=== PATIENT | female | born 1950 | race Caucasian/White ===

== ENCOUNTER → 2019-05-17 08:02 | Outpatient (CLI) | payer MEDICARE, BC ==
[2012-06-10 12:59] VITALS: BMI 40.7
--- NOTE | 2019-05-18 13:05 | EC ---
PATIENT:KRISTOPHER JIMENES DATE OF SERVICE: 05/17/19 SEX: F MEDICAL RECORD: [id number] DATE OF : [birth year] LOCATION:D[facility] AGE OF PATIENT: 69 ADMISSION DATE: 05/17/19 REFERRING PHYSICIAN: INTERPRETING PHYSICIAN: HAILEY ABRAHAM MD ECHOCARDIOGRAM REPORT ECHO CHARGES 4 ECHO COMPLETE Date: 05/17/19 CLINICAL DIAGNOSIS: /FATIGUE/MURMUR H/O HTN ECHOCARDIOGRAPHIC MEASUREMENTS (adult normal given) AC root (d.<3.7cm) 2.5 cm LV Septum d (<1.2 cm> 1.2 cm Valve Excursion 1.1 cm LV Septum (systole) 1.5 cm Left Atria (s.<4.0cm> 4.3 cm LVPW d(<1.2cm) 1.0 cm RV (d.<2.3cm) 2.4 cm LVPW (sytole) 1.7 cm LV diastole(<5.6CM) 5.4 cm MV E-F(>70mm/sec) cm LV systole 3.0 cm LVOT Diameter 1.8 cm MV exc.(>10mm) cm Est.ejection fraction (50-75%) % DOPPLER: LVIT cm/sec A 148 cm/sec E 86.0 cm/sec LA cm/sec RVSP 30.0 mmHg LVOT 137 cm/sec AOP1/2T m/s Asc. Ao 204 cm/sec RVOT 68.0 cm/sec RA cm/sec PA 95.0 cm/sec AV Gradient Peak 17.0 mmHg AV Mean 8.6 mmHg AV Area 1.8 cm MV Gradient Peak 8.9 mmHg MV Mean 3.4 mmHg MV Area cm COMMENTS: OP - HC Short Haul Driver: 1 RAMONA JANNET Lithographic Proofer: 3 Dr. Sun TAPE# PACS Pericardial Effusion N DATE OF SERVICE: 05/17/2019 Adequate 2-D, color-flow and spectral Doppler, and M-mode. No LVH. LV internal dimensions are normal. Wall motion is normal. EF is greater than or equal to 55%. Aortic valve is calcified with mild restriction of leaflet motion. Peak gradient is 17 mmHg, putting this in the mild range. Left atrium is mildly dilated at 4.3 cm. Mitral valve shows no prolapse. Trace MR. Right-sided chambers are grossly normal. Trace TR on color-flow imaging. ECHOCARDIOGRAM REPORT [id number] KRISTOPHER JIMENES TRANSINT:[id number] Voice Confirmation ID: [id number] DOCUMENT ID: [id number] HAILEY ABRAHAM MD at 1305 CC: [id number] DICTATION DATE: 05/17/19 1515 MARBLE SUPERVISOR: 05/17/19 1658 DEP CLI 05/17/19 [place] [id number] [place] [address]
== END | disposition home or self-care (01) ==
LOC: D.HCCARDIO 08:02
PROVIDERS: ATTEND Internal Medicine Interventional Cardiology
DX: I35.0 Nonrheumatic aortic (valve) stenosis (principal)

== ENCOUNTER → 2019-06-16 07:41 | Outpatient (CLI) | payer MEDICARE, BC ==
[2012-06-10 12:59] VITALS: BMI 40.7
--- NOTE | ~2019-06-16 | ST ---
PATIENT:KRISTOPHER JIMENES MEDICAL RECORD: [id number] SEX: F LOCATION:[facility] ORDER #: ADMISSION DATE: 06/16/19 AGE OF PATIENT: 69 REFERRING PHYSICIAN: INTERPRETING PHYSICIAN: RAUL MURPHY MD DATE OF SERVICE: 06/16/2019 PROCEDURE: Nuclear stress test. INDICATIONS: Angina, hypertension, aortic valve stenosis, shortness of breath. She was exercised on standard Lexiscan protocol with 33 mCi of sestamibi injected at peak stress and 11 mCi used previously for rest images. FINDINGS: Gated SPECT reveals preserved ejection fraction at 79% with good wall motion and thickening and brightening throughout all segments. SPECT imaging Cardiolite was used as myocardial fusion agent. There is homogeneous uptake throughout all segments at rest and stress with no evidence of inducible ischemia or previous infarction. OVERALL IMPRESSION: 1. This is a normal nuclear stress test with no evidence of inducible ischemia or previous infarction. 2. Gated SPECT reveals a preserved ejection fraction at 79%. In this patient with ongoing symptomatology, the current scan does not suggest the presence of hemodynamically significant coronary artery disease. Evaluate noncardiac etiology of chest pain. TRANSINT:[id number] Voice Confirmation ID: [id number] DOCUMENT ID: [id number] RAUL MURPHY MD CC: DOUG KAMARA [id number] DICTATION DATE: 06/18/19 1513 REMEDIAL TEACHER: 06/19/19 0426 DEP CLI 06/16/19 [id number] [place] [address]
== END | disposition home or self-care (01) ==
LOC: D.HCCARDIO 07:41
PROVIDERS: ATTEND Internal Medicine Interventional Cardiology
DX: I20.9 Angina pectoris, unspecified (principal)

== ENCOUNTER → 2020-07-24 08:56 | Outpatient (CLI) | payer MEDICARE, BC ==
[2012-06-10 12:59] VITALS: BMI 40.7
--- NOTE | 2020-07-26 07:58 | EC ---
PATIENT:KRISTOPHER JIMENES DATE OF SERVICE: 07/24/20 SEX: F MEDICAL RECORD: [id number] DATE OF : [birth year] LOCATION:D.[facility] AGE OF PATIENT: 70 ADMISSION DATE: 07/24/20 REFERRING PHYSICIAN: INTERPRETING PHYSICIAN: HAILEY ABRAHAM MD ECHOCARDIOGRAM REPORT ECHO CHARGES 4 ECHO COMPLETE Date: 07/24/20 CLINICAL DIAGNOSIS: AORTIC STENOSIS ECHOCARDIOGRAPHIC MEASUREMENTS (adult normal given) AC root (d.<3.7cm) 3.3 cm LV Septum d (<1.2 cm> 1.5 cm Valve Excursion 1.5 cm LV Septum (systole) 1.7 cm Left Atria (s.<4.0cm> 3.9 cm LVPW d(<1.2cm) 1.6 cm RV (d.<2.3cm) 3.9 cm LVPW (sytole) 1.7 cm LV diastole(<5.6CM) 4.7 cm MV E-F(>70mm/sec) cm LV systole 2.7 cm LVOT Diameter 1.6 cm MV exc.(>10mm) cm Est.ejection fraction (50-75%) % DOPPLER: LVIT cm/sec A 115.0cm/sec E 80.0 cm/sec LA cm/sec RVSP 40 mmHg LVOT 138 cm/sec AOP1/2T m/s Asc. Ao 206 cm/sec RVOT 78 cm/sec RA cm/sec PA 144 cm/sec AV Gradient Peak 16.95mmHg AV Mean 9.28 mmHg AV Area 1.4 cm MV Gradient Peak 10.47mmHg MV Mean 4.26 mmHg MV Area cm COMMENTS: Ripsaw Grader: 2 MARGO ROTHMAN Deputy Sheriff Chief: 3 Dr. Sun TAPE# PACS Pericardial Effusion N DATE OF SERVICE: Adequate 2D, color flow imaging, spectral Doppler, and M-Mode. LVH is present. LV internal dimension is normal. Wall motion is normal. EF is greater than or equal to 55%. Aortic valve is sclerotic with minimal restriction of leaflet motion. Peak gradient of 17 mmHg putting this in mild range. Trivial AI is present as well. Left atrium is normal at 3.9 cm. Mitral valve shows no prolapse. Trace MR. Right-sided chambers are grossly normal. Trace TR. ECHOCARDIOGRAM REPORT [id number] KRISTOPHER JIMENES TRANSINT:[id number] Voice Confirmation ID: [id number] DOCUMENT ID: [id number] HAILEY ABRAHAM MD at 0758 CC: [id number] DICTATION DATE: 07/25/20 1549 SALES SUPPORT ENGINEER: 07/25/20 2142 DEP CLI 07/24/20 [place] [id number] [place] [id number]
== END | disposition home or self-care (01) ==
LOC: D.HCCECHO 08:30
PROVIDERS: ATTEND Internal Medicine Interventional Cardiology
DX: I35.0 Nonrheumatic aortic (valve) stenosis (principal)

== ENCOUNTER → 2021-01-31 08:03 | Outpatient (CLI) | payer MEDICARE, BC ==
[2012-06-10 12:59] VITALS: BMI 40.7
--- NOTE | 2021-02-02 09:41 | EC ---
PATIENT:KRISTOPHER JIMENES DATE OF SERVICE: 01/31/21 SEX: F MEDICAL RECORD: [id number] DATE OF : 54 LOCATION:D.[facility] AGE OF PATIENT: 70 ADMISSION DATE: 01/31/21 REFERRING PHYSICIAN: INTERPRETING PHYSICIAN: HAILEY ABRAHAM MD ECHOCARDIOGRAM REPORT ECHO CHARGES 4 ECHO COMPLETE Date: 01/31/21 CLINICAL DIAGNOSIS: AORTIC STENOSIS ECHOCARDIOGRAPHIC MEASUREMENTS (adult normal given) AC root (d.<3.7cm) 3.1 cm LV Septum d (<1.2 cm> 1.5 cm Valve Excursion 1.6 cm LV Septum (systole) 1.7 cm Left Atria (s.<4.0cm> 3.5 cm LVPW d(<1.2cm) 1.5 cm RV (d.<2.3cm) 4.0 cm LVPW (sytole) 2.0 cm LV diastole(<5.6CM) 4.1 cm MV E-F(>70mm/sec) cm LV systole 2.1 cm LVOT Diameter 1.7 cm MV exc.(>10mm) 1.3 cm Est.ejection fraction (50-75%) % DOPPLER: LVIT cm/sec A 116.0cm/sec E 91.0 cm/sec LA cm/sec RVSP 30 mmHg LVOT 122 cm/sec AOP1/2T m/s Asc. Ao 216 cm/sec RVOT 69 cm/sec RA cm/sec PA 139 cm/sec AV Gradient Peak 18.60mmHg AV Mean 7.79 mmHg AV Area 1.4 cm MV Gradient Peak 8.48 mmHg MV Mean 2.38 mmHg MV Area cm COMMENTS: [employer] Supervisor: 2 MARGO ROTHMAN Manager E Learning: 3 Dr. Sun TAPE# PACS Pericardial Effusion N DATE OF SERVICE: Adequate 2D, color flow imaging, spectral Doppler, and M-Mode. LVH is present. LV internal dimensions are normal. Wall motion normal. EF greater than or equal to 55%. Aortic valve is calcified with minimal restriction of leaflet motion. Peak gradient of 18 mmHg putting this in mild range. Left atrium is normal at 3.5 cm. Mitral valve shows no prolapse. Trace MR. Right-sided chambers are grossly normal. Trace TR. ECHOCARDIOGRAM REPORT [id number] KRISTOPHER JIMENES TRANSINT:[id number] Voice Confirmation ID: [id number] DOCUMENT ID: [id number] HAILEY ABRAHAM MD at 0941 CC: [id number] DICTATION DATE: 02/01/21 144 READING TUTOR: 02/01/211920 DEP CLI 01/31/21 [place] [id number] [place] [id number]
== END | disposition home or self-care (01) ==
LOC: D.HCCECHO 01-29 08:30
PROVIDERS: ATTEND Internal Medicine Interventional Cardiology
DX: I35.0 Nonrheumatic aortic (valve) stenosis (principal)